=== PATIENT | female | born 1995 | race Caucasian/White ===

== ENCOUNTER → 2024-01-10 | Outpatient (CLI) | payer BC ==
[2024-01-10 18:38] LABS: HEMATOCRIT 33.5 % (36.0-47.0); HEMOGLOBIN 11.5 g/dl (12.0-15.5); MEAN CORPUSCULAR HEMOGLOBIN 32.1 pg (27.0-33.0); MEAN CORPUSCULAR HGB CONC 34.3 g/dl (32.0-36.5); MEAN CORPUSCULAR VOLUME 93.6 fl (80.0-96.0); PLATELET COUNT, AUTOMATED 285 10^3/uL (150-450); RED BLOOD COUNT 3.58 10^6/uL (4.00-5.40); WHITE BLOOD COUNT 10.7 10^3/uL (4.0-10.0)
[2024-01-10 19:09] LABS: FREE T4 1.12 NG/DL (0.89-1.76); THYROID STIMULATING HORMONE 23.872 uIU/ML (0.55-4.78)
[2024-01-10 19:40] LABS: HIV 1&2 SCREEN NEGATIVE (NEGATIVE)
[2024-01-10 19:48] LABS: HEPATITIS C VIRUS ABY INDEX < 0.02 INDEX (<0.8)
[2024-01-10 21:12] LABS: GC DNA AMPLIFICATION NEGATIVE (NEGATIVE)
== END ==
LOC: M PLALAB 15:40
PROVIDERS: ATTEND Advanced Practice Midwife
DX: Z34.01 Encounter for supervision of normal first pregnancy, first trimester (principal); Z3A.00 Weeks of gestation of pregnancy not specified

== ENCOUNTER → 2024-01-11 | Outpatient (CLI) | payer BC | LOC: M PLALAB 15:45 | PROVIDERS: ATTEND Advanced Practice Midwife | DX: Z34.01 Encounter for supervision of normal first pregnancy, first trimester (principal); Z3A.00 Weeks of gestation of pregnancy not specified ==

== ENCOUNTER → 2024-02-09 | Outpatient (CLI) | payer BC | LOC: M PLALAB 15:05 | PROVIDERS: ATTEND Obstetrics & Gynecology | DX: Z34.02 Encounter for supervision of normal first pregnancy, second trimester (principal) ==

== ENCOUNTER → 2024-03-01 | Outpatient (CLI) | payer BC | LOC: M RAD 13:13 | PROVIDERS: ATTEND Obstetrics & Gynecology | DX: Z34.02 Encounter for supervision of normal first pregnancy, second trimester (principal) ==

== ENCOUNTER → 2024-03-11 | Outpatient (CLI) | payer BC ==
[2024-03-11 17:30] LABS: HEMATOCRIT 32.8 % (36.0-47.0); HEMOGLOBIN 11.2 g/dl (12.0-15.5); MEAN CORPUSCULAR HEMOGLOBIN 32.7 pg (27.0-33.0); MEAN CORPUSCULAR HGB CONC 34.1 g/dl (32.0-36.5); MEAN CORPUSCULAR VOLUME 95.6 fl (80.0-96.0); PLATELET COUNT, AUTOMATED 283 10^3/uL (150-450); RED BLOOD COUNT 3.43 10^6/uL (4.00-5.40); WHITE BLOOD COUNT 10.9 10^3/uL (4.0-10.0)
[2024-03-11 18:05] LABS: FREE T4 1.18 NG/DL (0.89-1.76); THYROID STIMULATING HORMONE 5.025 uIU/ML (0.55-4.78)
[2024-03-11 18:29] LABS: HIV 1&2 SCREEN NEGATIVE (NEGATIVE)
[2024-03-11 18:37] LABS: HEPATITIS C VIRUS ABY INDEX < 0.02 INDEX (<0.8)
[2024-03-11 19:07] LABS: GC DNA AMPLIFICATION NEGATIVE (NEGATIVE)
== END ==
LOC: M PLALAB 15:19
PROVIDERS: ATTEND Advanced Practice Midwife
DX: Z34.82 Encounter for supervision of other normal pregnancy, second trimester (principal); Z3A.00 Weeks of gestation of pregnancy not specified

== ENCOUNTER → 2024-04-08 | Outpatient (CLI) | payer BC | LOC: M LAB 07:00 | PROVIDERS: ATTEND Advanced Practice Midwife | DX: Z34.82 Encounter for supervision of other normal pregnancy, second trimester (principal); Z3A.00 Weeks of gestation of pregnancy not specified ==

== ENCOUNTER → 2024-04-12 | Outpatient (CLI) | payer BC | LOC: M RAD 09:34 | PROVIDERS: ATTEND Advanced Practice Midwife | DX: Z34.82 Encounter for supervision of other normal pregnancy, second trimester (principal); Z3A.27 27 weeks gestation of pregnancy ==

== ENCOUNTER → 2024-04-12 | Outpatient (CLI) | payer BC ==
[2024-04-12 11:40] LABS: FREE T4 1.48 NG/DL (0.89-1.76)
[2024-04-12 11:41] LABS: THYROID STIMULATING HORMONE 0.641 uIU/ML (0.55-4.78)
== END ==
LOC: M LAB 10:20
PROVIDERS: ATTEND Obstetrics & Gynecology
DX: Z34.82 Encounter for supervision of other normal pregnancy, second trimester (principal); Z3A.27 27 weeks gestation of pregnancy

== ENCOUNTER 2024-06-04 02:13 | Outpatient (CLI) | payer BC ==
[~2024-06-04] VITALS: Ht 162.6 cm; Wt 93.3 kg
[2024-06-04] VITALS (9 sets, daily range): BP systolic 117–127; BP diastolic 59–82
[2024-06-04] MEDS ORDERED: ESSE250T PO (02:32)
[2024-06-04] MEDS ORDERED: PARO40TA3 PO (02:32)
[2024-06-04] MEDS ORDERED: NOXI1TAB PO (02:32)
[2024-06-04] MEDS ORDERED: EQL50TAB2 PO (02:32)
[2024-06-04] MEDS ORDERED: OMEP10CASR PO (02:32)
[2024-06-04] MEDS ORDERED: PRENTAB9 PO (02:32)
[2024-06-04] MEDS ORDERED: LEVO200T4 PO (02:32)
[2024-06-04] MEDS ORDERED: HOME MED LIST COMPLETE! XX SCH (02:35)
[2024-06-04] MEDS: LACTATED RINGER'S 500 ML IV ONE (03:05)
[2024-06-04 03:43] LABS: APPEARANCE, URINE CLEAR (CLEAR); BACTERIA, URINE AUTO 1+ (NEGATIVE); BILIRUBIN, URINE AUTO NEGATIVE (NEGATIVE); BLOOD, URINE BLOOD NEGATIVE (NEGATIVE); COLOR, URINE STRAW (YELLOW); GLUCOSE, URINE (UA) AUTO NEGATIVE (NEGATIVE); KETONE, URINE AUTO NEGATIVE (NEGATIVE); LEUKOCYTE ESTERASE, URINE AUTO NEGATIVE (NEGATIVE); MUCUS, URINE SMALL (NEGATIVE); NITRITE, URINE AUTO NEGATIVE (NEGATIVE); PROTEIN, URINE AUTO NEGATIVE (NEGATIVE); RBC, URINE AUTO 0 /HPF (0-3); SPECIFIC GRAVITY URINE AUTO 1.004 (1.002-1.035); SQUAMOUS EPITHELIAL CELL UR AU 1 /HPF (0-6); UROBILINOGEN, URINE AUTO 0.2 mg/dL (0.0-2.0); WBC, URINE AUTO 0 /HPF (0-3)
[2024-06-04] MEDS: LR 1,000 ML IV SCH (03:44)
[2024-06-04 03:48] LABS: HEMOGLOBIN 12.4 g/dl (12.0-15.5); MEAN CORPUSCULAR HEMOGLOBIN 31.8 pg (27.0-33.0); MEAN CORPUSCULAR HGB CONC 35.4 g/dl (32.0-36.5); MEAN CORPUSCULAR VOLUME 89.7 fl (80.0-96.0); PLATELET COUNT, AUTOMATED 283 10^3/uL (150-450); WHITE BLOOD COUNT 17.3 10^3/uL (4.0-10.0)
[2024-06-04] MEDS: BETAMETHASONE SOLUSPAN 6MG/ML 5ML VIAL IM SCH (03:49)
[2024-06-04] MEDS: PROMETHAZINE 25MG/ML 1ML VIAL IV ONE (04:05)
[2024-06-04] MEDS: BUTORPHANOL 2 MG/ML 1ML VIAL IV ONE (04:06)
[2024-06-04] MEDS: PARoxetine 20MG TABLET PO SCH (09:55)
[2024-06-04] MEDS: LEVOTHYROXINE 100MCG TABLET (0.1MG) PO SCH (09:55)
[2024-06-04] MEDS: PRENATAL VITAMINS CHEWABLE TABLET PO SCH (09:55)
[2024-06-04] MEDS: ACETAMINOPHEN 500 MG TAB PO PRN (17:33)
[2024-06-05] VITALS: BP 129/69
[2024-06-05] MEDS: BETAMETHASONE SOLUSPAN 6MG/ML 5ML VIAL IM ONE (00:02)
== END 2024-06-05 00:13 | disposition home or self-care (01) ==
LOC: M LDO 02:13
PROVIDERS: ATTEND Advanced Practice Midwife
DX: O47.03 False labor before 37 completed weeks of gestation, third trimester (principal); O99.283 Endocrine, nutritional and metabolic diseases complicating pregnancy, third trimester; O99.343 Other mental disorders complicating pregnancy, third trimester; O99.353 Diseases of the nervous system complicating pregnancy, third trimester; E03.9 Hypothyroidism, unspecified; F41.8 Other specified anxiety disorders; G43.909 Migraine, unspecified, not intractable, without status migrainosus; Z3A.34 34 weeks gestation of pregnancy
CPT/HCPCS: 59025; 76815; 81001; 84443; 85027; 86850; 86900; 86901; 87081; 87086; 96360; 96361; 96372; 96374; 96375; G0463; J0595; J0702; J2550

== ENCOUNTER 2024-06-07 21:22 | Inpatient (IN) | payer BC ==
[~2024-06-07] VITALS: Ht 162.6 cm; Wt 93.8 kg
[~2024-06-07 21:22] MED LIST: EQL50TAB2 PO; ESSE250T PO; LEVO200T4 PO; NOXI1TAB PO; OMEP10CASR PO; PARO40TA3 PO; PRENTAB9 PO
[2024-06-07 21:33] VITALS: BP 135/88
[2024-06-07] MEDS ORDERED: ACET-907 PO (21:39)
[2024-06-07] MEDS ORDERED: HOME MED LIST COMPLETE! XX SCH (21:50)
[2024-06-07 22:30] VITALS: BP 132/91
[2024-06-07 22:31] LABS: HEMATOCRIT 36.1 % (36.0-47.0); HEMOGLOBIN 12.4 g/dl (12.0-15.5); MEAN CORPUSCULAR HEMOGLOBIN 31.2 pg (27.0-33.0); MEAN CORPUSCULAR HGB CONC 34.3 g/dl (32.0-36.5); MEAN CORPUSCULAR VOLUME 90.7 fl (80.0-96.0); PLATELET COUNT, AUTOMATED 286 10^3/uL (150-450); RED BLOOD COUNT 3.98 10^6/uL (4.00-5.40); WHITE BLOOD COUNT 17.6 10^3/uL (4.0-10.0)
[2024-06-07] MEDS ORDERED: OXYTOCIN DRIP 30 UNITS in IV 1 EA IV PRN (22:35)
[2024-06-07] MEDS ORDERED: CARBOPROST TROMETHAMINE 250 MCG/ML AMP IM PRN (22:35)
[2024-06-07] MEDS ORDERED: LIDOCAINE 1% MDV 20ML VIAL INFIL PRN (22:35)
[2024-06-07] MEDS ORDERED: OXYTOCIN INJ 10UNITS/ML 1ML VIAL IM PRN (22:35)
[2024-06-07] MEDS: LACTATED RINGER'S 1000 ML IV STA (23:44)
[2024-06-08] VITALS (37 sets, daily range): BP systolic 92–148; BP diastolic 52–97; O2SAT 97
[2024-06-08] MEDS ORDERED: diphenhydrAMINE 50MG/ML VIAL IV PRN (00:20)
[2024-06-08] MEDS ORDERED: NALOXONE INJ 0.4MG/1ML VIAL IV PRN (00:20)
[2024-06-08] MEDS ORDERED: EPIDURAL/PCA KEYS XX PRN (00:20)
[2024-06-08] MEDS: FENTANYL/ROPIVACAINE/NACL BAG 100 ML EPIDURAL SCH (00:26)
[2024-06-08] MEDS: ONDANSETRON 4MG 2ML VIAL IV PRN (00:40)
[2024-06-08] MEDS: ePHEDrine SULFATE 25 MG/5 ML(5MG/ML) SYRINGE IVP PRN (01:03)
[2024-06-08] MEDS: LR 500 ML IV PRN (01:18)
[2024-06-08] MEDS: OXYTOCIN DRIP 30 UNITS in IV 1 EA IV SCH ×2 (02:36→07:59)
[2024-06-08] MEDS: METHYLERGONOVINE MALEATE 0.2MG/ML 1ML VIAL IM PRN (07:13)
[2024-06-08] MEDS: TRANEXAMIC ACID INJection 1,000 MG in NS 100 ML IV PRN (07:32)
[2024-06-08] MEDS ORDERED: RHOGAM 300MCG (1500IU) INJ IM SCH (07:40)
[2024-06-08] MEDS ORDERED: ACETAMINOPHEN 325 MG TAB PO PRN (07:40)
[2024-06-08] MEDS ORDERED: IBUPROFEN 600MG TAB PO PRN (07:40)
[2024-06-08] MEDS ORDERED: METHYLERGONOVINE MALEATE 0.2 MG TAB PO PRN (07:40)
[2024-06-08] MEDS: BUTORPHANOL 2 MG/ML 1ML VIAL IV ONE (07:51)
[2024-06-08] MEDS: PROMETHAZINE 25MG/ML 1ML VIAL IV ONE (07:51)
[2024-06-08] MEDS: PRENATAL VITAMINS CHEWABLE TABLET PO SCH (07:58)
[2024-06-08] MEDS: IBUPROFEN 800 MG TAB PO PRN (07:59)
[2024-06-08] MEDS: ACETAMINOPHEN 500 MG TAB PO PRN (09:59)
[2024-06-09 05:30] VITALS: BP 123/69; O2SAT 95
[2024-06-09] MEDS: DIBUCAINE 1% OINTMENT 30GM TOP PRN (08:26)
[2024-06-09] MEDS: OMEPRAZOLE 20MG CAP PO SCH (12:13)
[2024-06-09] MEDS: LEVOTHYROXINE 100MCG TABLET (0.1MG) PO SCH (12:13)
[2024-06-09] MEDS: PARoxetine 20MG TABLET PO SCH (12:14)
[2024-06-09] MEDS: LEVOTHYROXINE 25MCG TABLET (0.025MG) PO SCH (12:14)
[2024-06-09 18:00] VITALS: BP 125/77; O2SAT 97
[2024-06-10 05:58] VITALS: BP 117/65; O2SAT 94
[2024-06-10] MEDS: DOCUSATE SODIUM 100MG CAPSULE PO PRN (07:56)
[2024-06-10] MEDS ORDERED: MEASLES,MUMPS,RUBELLA VACCINE INJ (MMR-II) SC.IMMUN ONE (09:00)
[2024-06-10] MEDS ORDERED: IBUP80TA PO (11:37)
[2024-06-10] MEDS ORDERED: ACET-683 PO (11:37)
== END 2024-06-10 17:00 | disposition home or self-care (01) | DRG 560 ==
LOC: M LDO 21:22 → M LDI 22:03 → M OBS 06-08 10:03
PROVIDERS: ADMIT Advanced Practice Midwife; ATTEND Advanced Practice Midwife
PROC: 0HQ9XZZ Repair Perineum Skin, External Approach (ICD-10-PCS; 2024-06-07)
PROC: 10E0XZZ Delivery of Products of Conception, External Approach (ICD-10-PCS; principal; 2024-06-08)
DX: O60.14X0 Preterm labor third trimester with preterm delivery third trimester, not applicable or unspecified (principal); Z37.0 Single live birth; Z3A.35 35 weeks gestation of pregnancy; E03.9 Hypothyroidism, unspecified; O99.284 Endocrine, nutritional and metabolic diseases complicating childbirth; Z88.2 Allergy status to sulfonamides; O70.0 First degree perineal laceration during delivery